=== PATIENT | female | born 1990 | race Caucasian/White ===

== ENCOUNTER 2020-03-08 16:07 | Outpatient (CLI) | payer OTHER, SELFPAY ==
[2020-03-08 17:26] LABS: Hemoglobin A1C 4.9 % (<5.7)
[2020-03-08 17:34] LABS: Thyroid Stimulating Hormone 0.957 uIU/mL (0.465-4.680)
[2020-03-10 11:09] LABS: FSH 3.4 mIU/mL (***); LH 2.4 mIU/mL (***); Progesterone 3.5 ng/mL (***); Prolactin 11.8 ng/mL (***)
[2020-03-11 08:54] LABS: Testosterone Total 21 ng/dL (2-45)
[2020-03-11 14:40] LABS: DHEA-Sulfate 348 mcg/dL (18-391)
[2020-03-13 18:36] LABS: Sex Hormone Binding Globulin 42 nmol/L (17-124)
[2020-03-13 20:42] LABS: Estradiol, Ultrasensitive 57 pg/mL
== END 2020-03-08 16:08 | disposition home or self-care (01) ==
LOC: ANHLAB 16:11
PROVIDERS: Family Provider Emergency Medicine; Visit Provider Obstetrics & Gynecology
DX: N39.0 Urinary tract infection, site not specified (principal)
CPT/HCPCS: 36415; 82627; 82670; 83001; 83002; 83036; 83498; 84144; 84146; 84270; 84403; 84443